=== PATIENT | male | born 1945 | race African-American/Black ===

== ENCOUNTER 2020-11-08 16:44 | Emergency (ER) | payer OTHER ==
[2020-11-08 16:54] VITALS: BP 168/86; PULSE 83; BMI 28.7
[2020-11-08 18:13] LABS: URINE APPEARANCE CLEAR; URINE BILIRUBIN NEGATIVE (NEGATIVE); URINE COLOR YELLOW; URINE GLUCOSE (UA) NEGATIVE (NEGATIVE); URINE KETONE NEGATIVE (NEGATIVE); URINE LEUK ESTERASE NEGATIVE (NEGATIVE); URINE NITRITE NEGATIVE (NEGATIVE); URINE PROTEIN NEGATIVE (NEGATIVE); URINE UROBILINOGEN 0.2 mg/dL (0.2-1.0)
== END 2020-11-08 18:33 | disposition home or self-care (01) ==
LOC: JER 16:44
DX: N50.82 Scrotal pain (principal)
CPT/HCPCS: 76870-TC; 81003; 87086; 99284-25